=== PATIENT | female | born 1980 | race Caucasian/White ===

== ENCOUNTER 2016-06-05 15:19 | Emergency (ER) | payer MEDICAID ==
[~2016-06-05] VITALS: Ht 175.3 cm; Wt 115.0 kg
[2016-06-05 15:41] VITALS: BP 111/79; PULSE 82; RESP 16; TEMP 99.4; O2SAT 97
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
[2016-06-05] MEDS ORDERED: IBUPROFEN 800 MG TAB PO ONE (16:15)
[2016-06-05] MEDS ORDERED: EXTR500C PO (16:19)
[2016-06-05] MEDS ORDERED: IBUP-232 PO (16:19)
== END 2016-06-05 16:35 | disposition home or self-care (01) ==
LOC: PHEFT 15:19
DX: S90.32XA Contusion of left foot, initial encounter (principal); V11.0XXA Pedal cycle driver injured in collision with other pedal cycle in nontraffic accident, initial encounter; Y93.55 Activity, bike riding; Y92.9 Unspecified place or not applicable; Y99.9 Unspecified external cause status
CPT/HCPCS: 73630; 99283; L3260